=== PATIENT | female | born 1940 | race Caucasian/White ===

== ENCOUNTER 2019-03-13 17:36 | Inpatient (IN) ==
--- NOTE | 2019-03-13 18:41 | PROVIDER DOCUMENTATION ---
This chart was entered by Latanya King Scribe, acting as scribe for Alena Salvador MD. 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 denies: chest pain, cough, nausea, vomiting Similar Symptoms Previously?: Yes Recently seen or treated by another doctor?: Yes - Glascow Coma Score Best Eye Response (Tillar): (4) open spontaneously Best Verbal Response (Luzma): (5) oriented Best Motor Response (Luzma): (6) obeys commands Luzma Total: 15 <Alena Salvador - Last Filed: 03/13/19 21:00> <Mason Tenorio - Last Filed: 03/13/19 21:16> - General Chief Complaint: Fever Stated Complaint: trouble walking Time Seen by Provider: 03/13/19 18:13 Allergies/Adverse Reactions: Patient Allergies Allergy/AdvReac Type Severity Reaction Status Date / Time No Known Allergies Allergy Verified 03/08/19 11:44 Home Medications: Home Medication List Medication Instructions Recorded Confirmed Last Taken Type Levothyroxine [Synthroid] 75 microgm PO DAILY 02/14/13 03/13/19 02/14/19 06:00 History Losartan [Cozaar] 100 mg PO DAILY #0 tablet 03/21/13 03/13/19 02/14/19 06:00 Rx Aripiprazole [Abilify] 7.5 mg PO QHS #15 tab 07/20/17 03/13/19 02/14/19 21:00 Rx Mirtazapine [Remeron] 15 mg PO QHS #30 tab 07/20/17 03/13/19 02/14/19 21:00 Rx Hydrocodone/Acetaminophen [[place] 7.5 mg PO TID PRN 02/09/19 03/13/19 02/14/19 19:30 History 7.5-325 Tablet] Prednisone 10 mg PO DAILY 0703/13/19 02/14/19 06:30 History Sulfasalazine 2 tab PO BID 02/09/19 03/08/19 02/14/19 06:30 History Sitagliptin Phos/Metformin HCl 1 tab PO QAM 03/08/19 03/13/19 Unknown History [Janumet 50-500 mg Tablet] Topiramate [Topamax] 50 mg PO BID 03/08/19 03/08/19 Unknown History Duloxetine [Cymbalta] 60 mg PO DAILY 03/13/19 03/13/19 Unknown History Metoprolol [Lopressor] 1 tab PO BID 03/13/19 03/13/19 Unknown History Topiramate 1 tab PO BID 03/13/19 03/13/19 Unknown History - History of Present Illness-Fever Nature of Presenting Problem: pt is a 78 yr old female presenting via EMS with complaint of fever, weakness and difficulty ambulating onset this afternoon, daughter reports she was unable to get pt to answer phone, went to check on her and found her sitting on toilet unable to get up due to weakness in her legs. pt admits recent hx of bladder cancer, bladder stents are in place and due to be removed on 03/15. pt is followed by Dr Hernandez and Dr Leslie. pt reports hx of frequent UTIs. (Alena Salvador) Review of Systems - Adult - REVIEW OF SYSTEMS - ADULT Constitutional: reports: chills, fever, fatique Eyes: reports: no symptoms reported Ears, Nose, Mouth & Throat: denies: ear pain, sinus problem, throat pain Cardiovascular: denies: chest pain, syncope Respiratory: denies: cough, shortness of breath Gastrointestinal: denies: abdominal pain, diarrhea, nausea, vomiting Genitourinary: reports: frequent UTI's. denies: dysuria, frequency Musculoskeletal: denies: back pain, neck pain Integumentary: reports: no symptoms reported Neurological: denies: dizziness/vertigo, headache/migraines Psychiatric: reports: no symptoms reported Endocrine: reports: no symptoms reported Hematologic/Lymphatic: reports: no symptoms reported Allergic/Immunologic: reports: no symptoms reported All Other Systems: Reviewed and Negative <Alena Salvador - Last Filed: 03/13/19 21:00> Past History - Adult - PAST MEDICAL HISTORY-ADULT Review of Records: reports: Old Records Reviewed, Nursing Assessment Review, Medications Reviewed, Social history reviewed & non-contributory. Major Childhood Illnesses: reports: denies history Cardiovascular: reports: HTN Respiratory: reports: denies history Gastrointestinal: reports: denies history Obstetrical/Gynecological: reports: denies history Genitourinary: reports: denies history Musculoskeletal: reports: denies history Neurological: reports: TIA Psychiatric: reports: denies history Endocrine/Immune: reports: denies history Other Conditions: reports: denies history - IMMUNIZATION STATUS Childhood Immunizations: See Nurse Assessment Flu Vaccine: See Nurse Assessment - FAMILY HISTORY Family History: reviewed, not pertinent - SOCIAL HISTORY Smoking: denies Substance Use: denies Living Situation: family <Alena Salvador - Last Filed: 03/13/19 21:00> Physical Exam-General - PHYSICAL EXAM-ADULT Initial Vital Signs Reviewed: Yes - CONSTITUTIONAL General Appearance: alert, no apparent distress, other (flushed cheeks, tremor to mouth, bilateral hands) - EYES Eyes: PERRL/EOMI - HEAD, EARS, NOSE, MOUTH & THROAT HENMT: normocephalic/atraumatic, moist mucous membranes, normal ENT inspection - NECK Neck: non-tender, full range of motion, supple, normal inspection - RESPIRATORY Respiratory: chest non-tender, lungs clear, normal breath sounds - CARDIOVASCULAR Cardiovascular: normal peripheral pulses, regular rate, rhythm, no edema - GASTROINTESTINAL (ABDOMEN) Abdominal Exam: normal bowel sounds, non tender, soft - LYMPHATIC Lymphatic: no adenopathy - MUSCULOSKELETAL Back Exam: normal inspection, no CVA tenderness, no vertebral tenderness Extremity: normal range of motion, non-tender, pedal edema Peripheral Pulses: radial (R): 2+, radial (L): 2+, dorsalis-pedis (R): 2+, dorsalis-pedis (L): 2+ - SKIN Integumentary: normal turgor, warm/dry, other (flushed cheeks) - NEUROLOGIC Neurologic: other (tremor to hands and mouth, hx of parkinsons dz). negative: focal weakness, motor weakness - PSYCHIATRIC Psych/Mental Status: normal mood/affect <Alena Salvador - Last Filed: 03/13/19 21:00> Progress - PLAN OF CARE/RESULTS Result Diagrams: 03/13/19 18:15 03/13/19 18:15 - XRAY 1 XRAY Study: Chest Impression: Normal ( Signed EXAM: CHEST-1 VIEW HISTORY: sepsis TECHNIQUE: Chest single view COMPARISON: 06/02/2018 FINDINGS: Poor inspiratory effort. The heart is not enlarged. The vessels are not distended. There are no infiltrates. No effusion identified. Scattered granuloma. IMPRESSION: No pneumonia. Electronically signed by Osbaldo Smalls 03/13/2019 7:47 PM 03/13/191946 Interpreting Physician: Osbaldo Smalls MD Dictated Date/Time: 03/13/191946 cc: Alena Salvador MD; None,PCP) - CHANGE OF SHIFT REPORT (ED Provider) 1 Report Given and Care Transferred to:: Dr Tenorio Time of Transfer: 19:00 Items Pending: Labs (need to call hospitalist to admit patient) <Alena Salvador - Last Filed: 03/13/19 21:00> - PLAN OF CARE/RESULTS Result Diagrams: 03/13/19 18:15 03/13/19 18:15 - CONSULTS/PCP/HOSPITALIST Notification #1 *Consult/PCP/Hospitalist*: hospitalistDr. Hill Time Discussed: 21:10 Consult Disposition: Admit <Mason Tenorio - Last Filed: 03/13/19 21:16> - PLAN OF CARE/RESULTS Progress/Plan/Lab Results: Vital Signs - 8 hr 03/13/19 17:16 03/13/19 19:50 03/13/19 20:23 Temperature 102.4 F H 98.6 F 100.1 F H Pulse Rate 81 85 Respiratory Rate 18 22 Blood Pressure 180/88 158/86 O2 Sat by Pulse Oximetry 92 L 94 L Laboratory Results - last 24 hr 03/13/19 03/13/19 03/13/19 18:15 18:15 18:15 WBC 7.80 RBC 3.67 L Hgb 11.0 L Hct 35.9 L MCV 97.8 MCH 30.0 MCHC 30.6 L RDW Std Deviation 14.5 Plt Count 147 MPV 11.6 H Immature Gran % (Auto) 0.1 Neut % (Auto) 81.1 H Lymph % (Auto) 9.2 L Mclennan % (Auto) 8.5 Eos % (Auto) 0.8 Baso % (Auto) 0.3 Immature Gran # (Auto) 0.01 Neut # (Auto) 6.33 Lymph # (Auto) 0.72 L Mclennan # (Auto) 0.66 H Eos # (Auto) 0.06 Baso # (Auto) 0.02 PT 13.9 INR 1.02 PTT (Actin FS) 27.8 Sodium 138 Potassium 4.3 Chloride 101 Carbon Dioxide 27 Anion Gap 10 BUN 16 Creatinine 0.7 Estimated GFR/1.73 m2 > 60 BUN/Creatinine Ratio 23 Glucose 150 H Calculated Osmolality 280 Calcium 8.3 L Total Bilirubin 0.50 AST 17 ALT 10 Alkaline Phosphatase 106 H Creatine Kinase 117 Troponin T Total Protein 6.5 Albumin 4.0 Globulin 3.0 Albumin/Globulin Ratio 2.0 Plasma Lactate Urine Source Urine Color Urine Clarity Urine pH Ur Specific [place] Urine Protein Urine Ketones Urine Blood Urine Nitrite Urine Bilirubin Urine Urobilinogen Urine Microscopic RBC Urine WBC Urine Microscopic WBC Ur Epithelial Cells Urine Crystals Urine Bacteria Urine Casts Urine Yeast Urine Glucose 03/13/19 03/13/19 03/13/19 18:15 18:15 20:02 WBC RBC Hgb Hct MCV MCH MCHC RDW Std Deviation Plt Count MPV Immature Gran % (Auto) Neut % (Auto) Lymph % (Auto) Mclennan % (Auto) Eos % (Auto) Baso % (Auto) Immature Gran # (Auto) Neut # (Auto) Lymph # (Auto) Mclennan # (Auto) Eos # (Auto) Baso # (Auto) PT INR PTT (Actin FS) Sodium Potassium Chloride Carbon Dioxide Anion Gap BUN Creatinine Estimated GFR/1.73 m2 BUN/Creatinine Ratio Glucose Calculated Osmolality Calcium Total Bilirubin AST ALT Alkaline Phosphatase Creatine Kinase Troponin T < 0.010 Total Protein Albumin Globulin Albumin/Globulin Ratio Plasma Lactate 0.8 Urine Source CATH Urine Color YELLOW Urine Clarity VERY CLOUDY A Urine pH 8.0 Ur Specific [place] 1.010 Urine Protein 2+(100 mg/dL) A Urine Ketones TRACE Urine Blood 4+ Urine Nitrite NEGATIVE Urine Bilirubin NEGATIVE Urine Urobilinogen NORMAL Urine Microscopic RBC TNTC A Urine WBC 2+ A Urine Microscopic WBC TNTC A Ur Epithelial Cells <10 Urine Crystals NONE SEEN Urine Bacteria 1+ Urine Casts NONE SEEN Urine Yeast NONE SEEN Urine Glucose NEGATIVE Orders Category Date Time Status Cardiac Monitoring DIRECTED Care 03/13/19 19:06 Active Causey Cath Insertion ORDERED Care 03/13/19 19:57 Active IV Insertion ORDERED Care 03/13/19 19:06 Active Notify MD of + Sepsis Screen NOW Care 03/13/19 19:06 Active Notify Physician As Ordered Care 03/13/19 19:06 Active CHEST-1 VIEW [RAD] Stat Exams 03/13/19 19:06 Completed BLOOD CULTURE [BLDCUL] Stat Lab 03/13/19 19:08 Ordered CBC WITH DIFF [HEME] Stat Lab 03/13/19 18:15 Completed CK PROFILE [SP CHEM] Stat Lab 03/13/19 18:15 Completed COMPREHENSIVE METABOLIC PANEL [CHEM] Stat Lab 03/13/19 18:[address] Stat Lab 03/13/19 20:52 Received LACTATE, PLASMA [CHEM] Lab 03/13/19 18:15 Completed LACTATE, PLASMA [CHEM] Lab 03/13/19 22:15 Uncollected LACTATE, PLASMA [CHEM] Lab 03/14/19 01:15 Uncollected PROTIME WITH INR [COAG] Stat Lab 03/13/19 18:15 Completed PTT [COAG] Stat Lab 03/13/19 18:15 Completed TROPONIN T Stat Lab 03/13/19 18:[address] W/POSS RFLX CULT [URINALYSIS] Stat Lab 03/13/19 20:02 Completed URINE CULTURE [RM] Routine Lab 03/13/19 20:39 Ordered Acetaminophen [Tylenol] Med 03/13/19 19:46 Discontinued 650 mg PO NOW ONE Hydrocodone/APAP 7.5 mg/325 mg [[place]-7.5] Med 03/13/19 20:54 Discontinued 1 each PO NOW ONE Piperacillin/Tazobactam [Zosyn] 3.375 gm Med 03/13/19 19:56 Discontinued 0.9% Sodium Chloride Inj [Ns] 50 ml IV NOW Oxygen Device Stat Oth 03/13/19 19:06 Active Departure - Departure Date of Disposition Decision: 03/13/19 - Critical Care Note This patient required my direct & personal management of CC.: Yes <Alena Salvador - Last Filed: 03/13/19 21:00> - Departure Time of Disposition Decision: 21:16 Certified Medical Emergency: Emergent <Mason Tenorio - Last Filed: 03/13/19 21:16> - Departure DIAGNOSIS: Generalized weakness Fever Qualifiers: Fever type: unspecified Qualified Code(s): R50.9 - Fever, unspecified UTI (urinary tract infection) Qualifiers: Urinary tract infection type: acute cystitis Hematuria presence: with hematuria Qualified Code(s): N30.01 - Acute cystitis with hematuria Disposition: ADMITTED INPATIENT 09 Condition: Stable Referrals and Follow-Ups: None,PCP [Primary Care Provider] - Attestation - Physician/ DENIA Attestation Patient care was provided by Advanced Practice Provider:: No The physician spent face to face time with patient:: Yes Advanced Practice Provider documentation review:: Supervising physician onsite and consulted in the evaluation and care of this patient. The physician did have a face to face encounter with the patient. <Mason Tenorio - Last Filed: 03/13/19 21:16> This chart was documented by the indicated scribe, (Latanya King Scribe) and accurately reflects the services I performed and decisions made by me, Alena Salvador MD, as attested by the provider's signature.
[2019-03-13 19:22] LABS: BASO# 0.02 X1000 (0.0-0.2); BASO% 0.3 % (0.0-0.8); EOS# 0.06 X1000 (0.0-0.7); EOS% 0.8 % (0.0-10.0); HEMATOCRIT 35.9 % (37.0-47.0); IMM GRAN# 0.01 X1000 (0.0-0.04); IMM GRAN% 0.1 % (0.0-0.5); LYMPH# 0.72 X1000 (1.2-3.4); LYMPH% 9.2 % (20.5-51.1); MCHC 30.6 g/dL (33-37); MCV 97.8 FL (81-99); MONO# 0.66 X1000 (0.11-0.59); MONO% 8.5 % (1.7-9.3); MPV 11.6 FL (7.4-10.4); NEUT# 6.33 X1000 (1.4-6.5); NEUT% 81.1 % (42.2-75.2); PLT 147 X1000 (130-400); RBC 3.67 XMIL (4.2-5.4); RDW 14.5 % (11.5-14.5)
[2019-03-13 19:23] LABS: INR 1.02; PROTIME 13.9 Seconds (11.0-16.0)
[2019-03-13 19:24] LABS: PTT 27.8 Seconds (22.3-41.8)
[2019-03-13 19:30] LABS: AGAP 10; ALKALINE PHOSPHATASE 106 U/L (32-104); BUN 16 mg/dL (8-22); CALCIUM 8.3 mg/dL (8.8-10.2); CHLORIDE 101 mmol/L (98-107); CK PROFILE 117 U/L (24-173); COSMO 280; CREATININE 0.7 mg/dL (0.5-0.9); ESTIMATED GFR > 60; GLUCOSE 150 mg/dL (70-104); GOT 17 U/L (10-30); GPT 10 U/L (10-36); POTASSIUM 4.3 mmol/L (3.5-5.1); SODIUM 138 mmol/L (136-145); TCO2 27 mmol/L (25-35); TOTAL PROTEIN 6.5 g/dL (6.3-8.3)
[2019-03-13] MEDS ORDERED: TYLENOL PO ONE (19:46)
--- NOTE | 2019-03-13 19:49 | Diag Imaging Result Doc PS360 ---
EXAM: CHEST-1 VIEW HISTORY: sepsis TECHNIQUE: Chest single view COMPARISON: 06/02/2018 FINDINGS: Poor inspiratory effort. The heart is not enlarged. The vessels are not distended. There are no infiltrates. No effusion identified. Scattered granuloma. IMPRESSION: No pneumonia. Electronically signed by Osbaldo Smalls 03/13/2019 7:47 PM
[2019-03-13] MEDS ORDERED: ZOSYN 3.375 GM in NS 50 ML IV ONE (19:56)
[2019-03-13 20:26] LABS: BILIRUBIN URINE NEGATIVE (NEGATIVE); BLOOD URINE 4+ (NEGATIVE); CLARITY VERY CLOUDY (CLEAR); COLOR YELLOW; GLUCOSE URINE NEGATIVE (NEGATIVE); KETONE URINE TRACE mg/dL (NEGATIVE); LEUKOCYTES URINE 2+ (NEGATIVE); NITRITE URINE NEGATIVE (NEGATIVE); PROTEIN URINE 2+(100 mg/dL) mg/dL (NEGATIVE); UROBILINOGEN URINE NORMAL
[2019-03-13 20:38] LABS: URINE BACTERIA 1+ /HFP; URINE CAST NONE SEEN /LPF; URINE CRYSTAL NONE SEEN /HPF; URINE EPITHELIAL CELLS <10 /HPF (<10); URINE RBC TNTC /HPF (<10); URINE WBC TNTC /HPF (<10); URINE YEAST NONE SEEN /HPF
[2019-03-13 20:39] LABS: URINE SOURCE CATH
[2019-03-13] MEDS ORDERED: NORCO-7.5 PO ONE (20:54)
[2019-03-13] MEDS ORDERED: NS 1,000 ML IV ONE (21:16)
[2019-03-13 21:17] LABS: INFLUENZA A NEGATIVE (NEGATIVE); INFLUENZA B NEGATIVE (NEGATIVE)
[2019-03-13] MEDS ORDERED: TYLENOL PO PRN (21:24)
[2019-03-14] MEDS: ZOSYN 3.375 GM in NS 50 ML IV SCH ×2 (01:34→08:45)
[2019-03-14] MEDS ORDERED: MORPHINE IV PRN (10:23)
[2019-03-14] MEDS ORDERED: COZAAR PO SCH (12:29)
[2019-03-14] MEDS ORDERED: LOPRESSOR PO SCH (12:29)
[2019-03-14] MEDS ORDERED: ZOFRAN IV PRN ×2 (12:29→13:24)
[2019-03-14] MEDS ORDERED: CYMBALTA PO SCH (12:29)
[2019-03-14] MEDS ORDERED: VANCOMYCIN IV PER PHARMACY MISC SCH (12:29)
[2019-03-14] MEDS ORDERED: NS 1,000 ML IV SCH (12:29)
[2019-03-14] MEDS ORDERED: TYLENOL PO PRN (13:23)
--- NOTE | 2019-03-14 13:23 | HISTORY AND PHYSICAL ---
CHIEF COMPLAINT: Fever, lower extremity weakness. HISTORY OF PRESENT ILLNESS: This is a 78-year-old female, who presented to the emergency room complaining of fever, generalized weakness and difficulty ambulating. This started around the afternoon of the . The daughter stated that she was unable to get the patient to answer the phone. She went to check on her and found her sitting on the toilet, unable to stand up due to weakness in her legs, prompting her evaluation in the emergency room. Ms. Martin underwent TURBT approximately 3 cm in diameter with cold cup biopsies of the bladder with fulguration and placement of a right double-J stent on February [address] Leslie. 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 She is scheduled for surgery on the to have a cystoscope and the right ureteral stent removed. PAST MEDICAL HISTORY: Parkinson disease with bilateral arm tremors, hypertension, hyperlipidemia, hypothyroid, sleep apnea, chronic pain, non alcoholic fatty liver disease, diabetes mellitus. PAST SURGICAL HISTORY: Luis Alberto fundoplication in early 1899s. SOCIAL HISTORY: She denies alcohol, tobacco, or illicit drug use. ALLERGIES: No known drug allergies. HOME MEDICATIONS: A list will be obtained by the nursing staff and, once verified, will review and restart it as appropriate. REVIEW OF SYSTEMS: Discussed with the patient with pertinent positives stated in the HPI. She denied any syncope or dizziness, any chest pain or palpitations, shortness of breath, cough, any night sweats, any nausea, vomiting, diarrhea, any black or bloody vomitus or stools. PHYSICAL EXAMINATION: GENERAL: This is a 78-year-old female, who is lying in the bed in no distress. VITAL SIGNS: Blood pressure is 152/64 with a heart rate of 83, respirations 16, temperature is 98.5 degrees oral with room air saturations 97%. EYES: Pupils equal, round, react to light. EOM's are intact. Sclerae anicteric. HEENT: Head is normocephalic, atraumatic. Mucous membranes are moist. NECK: Supple with trachea midline. CARDIOVASCULAR: Regular rate and rhythm. S1 and S2 are appreciated. She has no lower extremity edema. Calves are nontender bilateral with peripheral pulses palpable x4 extremities. PULMONARY: Breath sounds are clear with no increased work of breathing noted. Chest rises and falls symmetrically with respiration. GASTROINTESTINAL: Abdomen is soft, nontender, nondistended with bowel sounds in all 4 quadrants. : Urine is cloudy yellow draining from Causey to bedside bag. NEUROLOGIC: She is alert and oriented. SKIN: Warm and dry. LABS: WBC is 7.8 with hemoglobin 11, hematocrit 35.9, and platelets 147. INR is 1.02. Sodium 138, potassium 4.3, BUN 16, creatinine 0.7 with a glucose of 150. Urinalysis reveals too numerous to count red blood cells, too numerous to count microscopic white blood cells and less than 10 epithelial cells. Influenza A and B are negative. X-RAYS: Chest x-ray reveals no pneumonia. ASSESSMENT AND PLAN: 1. Generalized weakness. 2. Fever. 3. 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 4. Hypertension. 5. Diabetes mellitus. 6. Hypothyroid. 7. Gastroesophageal reflux disease. 8. Obstructive sleep apnea. 9. Non alcoholic fatty liver disease. PLAN: The patient was admitted to the medical-surgical floor at [facility]. Blood cultures and urine cultures are pending. Antibiotic coverage of vancomycin dosed per pharmacy and Zosyn, and further antibiotics will be culture driven. Pattern blood glucose with sliding scale insulin. identify her home medications and continue as appropriate with a diabetic diet. scheduled for stent removal in the morning. Therefore,will transfer her to [facility], consult Dr. Leslie. n.p.o. after midnight. CBC and CMP in the morning. Continue with IV hydration. Consult [facility] for discharge planning. Plan was discussed with Dr. Hill. Further treatments pending hospital course. Dictated by NAGI Dunham for Servando Hill MD cc: NAGI Dunham MD [facility]
[2019-03-14] MEDS ORDERED: SITAGLIPTIN PHOS PO SCH (13:45)
[2019-03-14] MEDS ORDERED: METFORMIN HCL PO SCH (13:45)
[2019-03-14] MEDS ORDERED: JANUVIA PO SCH (14:00)
[2019-03-14] MEDS ORDERED: ZOSYN 3.375 GM in NS 50 ML IV SCH (14:00)
[2019-03-14] MEDS ORDERED: VANCOMYCIN 1,700 MG in NS 250 ML IV ONE (14:00)
[2019-03-14] MEDS: NS 1,000 ML IV SCH (14:55)
[2019-03-14] MEDS: CYMBALTA PO SCH (14:59)
[2019-03-14] MEDS: COZAAR PO SCH (14:59)
[2019-03-14] MEDS: LOPRESSOR PO SCH ×2 (14:59→23:38)
[2019-03-14] MEDS: TOPAMAX PO SCH ×2 (15:07→23:38)
[2019-03-14] MEDS: PREDNISONE PO SCH (15:07)
--- NOTE | 2019-03-14 16:01 | HISTORY AND PHYSICAL ---
ADDENDUM: Patient seen and examined by myself. Full note dictated and discussed with nurse practitioner. The patient has a history of fever. She does have a history of bladder cancer and bladder stent. She notes the stent is supposed to be taken out in a couple of days by Dr. Leslie. We are going to place her on antibiotics. We are going to transfer her to [facility] so Dr. Leslie can evaluate and treat accordingly. Please see full note. cc: Servando Hill MD
--- NOTE | 2019-03-14 19:46 | Diag Imaging Result Doc PS360 ---
EXAM: CT ABD/PELVIS W/IV CONT ONLY 03/14/2019 HISTORY: r/o intra-abdomenal vs retroperitoneal abscess TECHNIQUE: This exam was performed using automated exposure control, adjustment of mA or kV according to patient size, and/or use of iterative reconstruction technique. COMMENT: The current study is compared with the previous examination of 09/06/2018. There are granulomatous changes in the lung bases there has been gastric bypass. The aorta contains some atherosclerotic calcification but there is no evidence of aneurysm and the mesenteric and renal arteries are patent. The pancreas and adrenal glands are stable in appearance. There are multiple renal cysts bilaterally. There is a stent in the right ureter and renal pelvis. There is still some dilatation of the collecting system. There is no evidence of cholelithiasis. The liver is unremarkable in appearance. There is no evidence of bowel obstruction. There is stranding in the perinephric spaces particularly on the right side. Pelvis: There has been previous appendectomy. There is a Causey catheter in the bladder. The bladder wall is thickened and indistinct in margin consistent with inflammation. This is worse than on the previous study. There has been hysterectomy. There is no evidence of free fluid. There is some diverticulosis in the sigmoid colon without evidence of diverticulitis. There is some gas and stool in the rectosigmoid colon. The regional skeleton is stable in appearance. IMPRESSION: Constipation. No evidence of abscess. The possibility of cystitis cannot be excluded. Persistent right hydronephrosis despite the presence of the ureteral stent. Electronically signed by Tao Gasca 03/14/2019 7:44 PM
[2019-03-14] MEDS: HUMALOG SUBQ SCH (21:30)
[2019-03-14] MEDS: REMERON PO SCH (23:38)
[2019-03-14] MEDS: ABILIFY PO SCH (23:38)
[2019-03-15] MEDS: MAXIPIME 1 GM in NS 50 ML IV SCH ×5 (03:46→18:42)
[2019-03-15] MEDS: HUMALOG SUBQ SCH ×5 (06:00→22:04)
[2019-03-15] MEDS: SYNTHROID PO SCH (06:00)
[2019-03-15] MEDS: PRILOSEC PO SCH (06:00)
[2019-03-15 06:22] LABS: BASO# 0.01 X1000 (0.0-0.2); BASO% 0.1 % (0.0-0.8); EOS# 0.14 X1000 (0.0-0.7); EOS% 1.9 % (0.0-10.0); HEMATOCRIT 36.1 % (37.0-47.0); HEMOGLOBIN 11.4 g/dL (12.0-16.0); IMM GRAN# 0.02 X1000 (0.0-0.04); IMM GRAN% 0.3 % (0.0-0.5); LYMPH# 1.04 X1000 (1.2-3.4); LYMPH% 13.8 % (20.5-51.1); MCH 30.1 PG (27-31); MCHC 31.6 g/dL (33-37); MCV 95.3 FL (81-99); MONO# 0.96 X1000 (0.11-0.59); MONO% 12.7 % (1.7-9.3); NEUT# 5.36 X1000 (1.4-6.5); NEUT% 71.2 % (42.2-75.2); PLT 124 X1000 (130-400); RBC 3.79 XMIL (4.2-5.4); RDW 14.8 % (11.5-14.5); WBC 7.53 X1000 (4.8-10.8)
[2019-03-15 06:42] LABS: AGAP 9; ALB/GLOB RATIO 1.1; ALBUMIN 3.3 g/dL (3.5-5.0); ALKALINE PHOSPHATASE 84 U/L (32-104); BUN 12 mg/dL (8-22); CALCIUM 8.8 mg/dL (8.8-10.2); CHLORIDE 108 mmol/L (98-107); COSMO 281; CREATININE 0.5 mg/dL (0.5-0.9); ESTIMATED GFR > 60; GLUCOSE 130 mg/dL (70-104); GOT 18 U/L (10-30); GPT 10 U/L (10-36); POTASSIUM 3.7 mmol/L (3.5-5.1); SODIUM 140 mmol/L (136-145); TCO2 23 mmol/L (25-35); TOTAL BILIRUBIN 0.32 mg/dL (0.20-1.00); TOTAL PROTEIN 6.4 g/dL (6.3-8.3)
[2019-03-15] MEDS ORDERED: SYNTHROID PO SCH (07:00)
[2019-03-15] MEDS ORDERED: PRILOSEC PO SCH (07:00)
[2019-03-15] MEDS ORDERED: B & O 15A SUPP ONE (07:36)
[2019-03-15] MEDS: NS 1,000 ML IV SCH ×2 (07:39→18:39)
[2019-03-15] MEDS ORDERED: ULTRAM PO PRN (08:38)
[2019-03-15] MEDS: PREDNISONE PO SCH (10:32)
[2019-03-15] MEDS: COZAAR PO SCH (10:32)
[2019-03-15] MEDS: LOPRESSOR PO SCH ×2 (10:33→22:04)
[2019-03-15] MEDS: TOPAMAX PO SCH ×2 (10:33→22:04)
[2019-03-15] MEDS: CYMBALTA PO SCH (10:33)
--- NOTE | 2019-03-15 10:33 | OPERATIVE NOTE ---
PROCEDURE DATE: 03/15/2019 PREOPERATIVE DIAGNOSIS: History of urothelial carcinoma in situ with indwelling right double J stent. POSTOPERATIVE DIAGNOSIS: History of urothelial carcinoma in situ with indwelling right double-J stent. PROCEDURE PERFORMED: 1. Cystoscopic exam. 2. Cold cup bladder biopsies with fulguration. 3. Remove right double-J stent. SURGEON: Prema Loco ANESTHESIA: General via laryngeal mask. FINDINGS: Cystoscopic exam: Urethra-greater than 21 [place], without stricture. Bladder-normal. Ureteral orifices bilaterally with a double-J stent in place on the right. The previous resection sites were healing well. No papillary lesions seen. There was a red area on the left lower posterolateral wall. exam normal external female. Atrophic mucosa. No adnexal masses. Palpably normal bladder. INDICATION FOR PROCEDURE: This 78-year-old female has a history of urothelial carcinoma in situ. She is about 4 weeks status post cystoscopic exam with bilateral retrograde ureteral pyelograms and excisional biopsies of red areas of the bladder. Her bilateral retrograde ureteral pyelograms were normal. The excisional biopsies revealed urothelial carcinoma in situ and all sites resected. She presents for second-look biopsies and removal of the double-J stent that was placed at the time of previous surgery description. DESCRIPTION OF PROCEDURE: After informed consent was obtained the patient and her receiving IV antibiotics, she was taken the main OR cystoscopy room, placed in the supine position. General anesthesia via laryngeal mask was achieved. She was then placed in the low lithotomy position and prepped and draped in the usual sterile fashion for cystoscopic exam. A 21-Grenadian sheath cystoscope was passed through patient's urethra and bladder with findings noted above. The cold cup biopsy forceps were placed, and the red area on the left lower posterolateral wall was biopsied. There was also a biopsy taken from the posterior wall and the right upper posterolateral wall. The Bugbee electrode was placed and hemostasis was achieved. The grasping forceps were placed and the indwelling double-J stent was removed. At completion of the procedure, both ureteral orifices appeared normal. The right side was dilated consistent with the indwelling stent. There was no bleeding areas seen. The cystoscope was removed. An 18-Grenadian Causey catheter was passed through the patient's urethra and into the bladder. 10 mL sterile water placed in the Causey balloon. The Causey was placed to gravity drain. The efflux was clear. She tolerated the procedure well. Estimated blood loss was 1 mL. She was taken to recovery room in good condition. cc: Heron Leslie MD
[2019-03-15] MEDS: MORPHINE IV PRN ×2 (10:53→15:52)
[2019-03-15] MEDS ORDERED: VANCOMYCIN 1,200 MG in NS 250 ML IV SCH (14:00)
[2019-03-15] MEDS ORDERED: GLUCOPHAGE PO SCH (14:00)
--- NOTE | 2019-03-15 16:00 | PROGRESS NOTE ---
DATE: 03/15/2019 SUBJECTIVE: This morning Ms. Martin refers to be doing a whole lot better. The daughter in law was at the bedside at the time of the encounter. Ms. Martin has just come out of surgery. OBJECTIVE: Vital signs: Blood pressure 132/68, pulse of 67, respirations 20, and temperature 98 degrees. General: Ms. Martin is a 78-year-old female. She is in bed in no distress. HEENT: Mucosa is pink and moist. Anicteric. Acyanotic. Neck: Supple. Chest: Clear to auscultation. No crepitations. No rhonchi. Cardiovascular: Regular rate and rhythm. No murmurs, no rubs, no gallops. Abdomen: Soft. Nontender. Bowel sounds present. Extremities: No pedal edema. [employer] SAL[employer]: Patient is awake, alert, and oriented. There is no focal neurological deficit. LABORATORY DATA: CBC reveals a normocytic anemia with a hemoglobin of 11.4. Rest of cell count is normal. Chemistry is also reviewed, and completely normal. Glucose is 224. CURRENT MEDICATIONS: 1. Abilify 7.5 p.o. at bedtime. 2. Cefepime 1 g q.8 hours. 3. Cymbalta 60 mg p.o. daily. 4. Insulin sliding scale. 5. Levothyroxine 75 mcg p.o. daily. 6. Cozaar 100 mg p.o. daily. 7. Metoprolol 50 mg b.i.d. 8. Remeron 15 mg p.o. at bedtime. 9. Vancomycin per pharmacy protocol. 10. Prednisone 10 mg p.o. daily. 11. Tramadol 50 mg p.o. q.6h p.r.n. MICROBIOLOGY DATA: So far, microbiology data shows blood cultures 48 hours negative. Urine culture still growing gram-positive cocci. Review of the operative report shows procedure done was cystoscopy, cold cup bladder biopsy with fulguration, removal of the right double-J stent. A CT scan of the abdomen yesterday did show constipation. No evidence of abscess. There was a possibility of cystitis. There is a persistent right hydronephrosis despite the presence of ureteral stent. ASSESSMENT: 1. Sepsis on presentation secondary to complicated right side pyelonephritis. 2. Right sided pyelonephritis with hydronephrosis associated with J-stent in place. This has been removed today by Urology. Patient is currently showing a gram-positive cocci in the urine. She has been covered until we have the ID and sensitivity. 3. History of diabetes mellitus controlled. 4. Hypothyroidism. We will continue with levothyroxine. 5. Generalized weakness secondary to the ongoing infection. The patient feels a whole lot better. We will get physical therapy to start working with her. In general, Ms. Martin is feeling a whole lot better. She feels stronger. She is now afebrile. She just underwent a urological intervention where the right double-J stent has been removed. We are still pending the final ID and sensitivity on the urine culture, and modify the antibiotic accordingly. cc: Leroy Banuelos MD MTDD
[2019-03-15] MEDS: ABILIFY PO SCH (22:03)
[2019-03-15] MEDS: REMERON PO SCH (22:04)
[2019-03-16] MEDS: MAXIPIME 1 GM in NS 50 ML IV SCH (01:30)
[2019-03-16] MEDS: NS 1,000 ML IV SCH ×2 (05:16→21:15)
[2019-03-16] MEDS: PRILOSEC PO SCH (05:59)
[2019-03-16] MEDS: SYNTHROID PO SCH (06:00)
[2019-03-16] MEDS: HUMALOG SUBQ SCH ×4 (06:21→21:12)
[2019-03-16 06:58] LABS: BASO# 0.02 X1000 (0.0-0.2); BASO% 0.3 % (0.0-0.8); EOS# 0.22 X1000 (0.0-0.7); EOS% 3.5 % (0.0-10.0); HEMATOCRIT 31.3 % (37.0-47.0); HEMOGLOBIN 9.5 g/dL (12.0-16.0); IMM GRAN# 0.02 X1000 (0.0-0.04); IMM GRAN% 0.3 % (0.0-0.5); LYMPH# 1.58 X1000 (1.2-3.4); LYMPH% 25.4 % (20.5-51.1); MCH 29.5 PG (27-31); MCHC 30.4 g/dL (33-37); MCV 97.2 FL (81-99); MONO# 0.69 X1000 (0.11-0.59); MONO% 11.1 % (1.7-9.3); MPV 11.5 FL (7.4-10.4); NEUT% 59.4 % (42.2-75.2); PLT 129 X1000 (130-400); RBC 3.22 XMIL (4.2-5.4); RDW 14.8 % (11.5-14.5); WBC 6.23 X1000 (4.8-10.8)
[2019-03-16] MEDS: MORPHINE IV PRN ×2 (07:48→14:06)
[2019-03-16] MEDS: PREDNISONE PO SCH (09:42)
[2019-03-16] MEDS: COZAAR PO SCH (09:42)
[2019-03-16] MEDS: CYMBALTA PO SCH (09:42)
[2019-03-16] MEDS: LOPRESSOR PO SCH ×2 (09:42→21:12)
[2019-03-16] MEDS: TOPAMAX PO SCH ×2 (09:42→21:12)
--- NOTE | 2019-03-16 13:41 | PROGRESS NOTE ---
DATE: 03/16/2019 SUBJECTIVE: This morning Ms. Martin referred to be feeling generalized weak and not as great as yesterday. She thinks she is feeling warm. However, her temperatures are normal. OBJECTIVE: Vital signs: Blood pressure is 134/59, pulse is 57, respiration is 17, temperature 97.1 degrees. The patient is saturating 98% on room air. General: Ms. Katz is a 78-year-old female. She is in bed. No seemingly distress. HEENT: Mucosa is pink and moist. Anicteric. Acyanotic. Neck: Supple. Chest: Good air entry bilaterally. There was no crepitations no rhonchi. Cardiovascular: Regular rate and rhythm. Abdomen: Soft, distended, but nontender. Bowel sounds present. Extremities: No pedal edema. DROP WIRER: Patient is awake, alert, oriented. There is no focal neurologic deficit. LABORATORY DATA: Glucose is 97. Urine culture has come back positive for Enterococcus gallinarum which is sensitive to penicillin and also vancomycin sensitive. ASSESSMENT: 1. Sepsis on presentation secondary to complicated right side pyelonephritis. The patient is on antimicrobial. Urine culture has come back positive for enterococcus gallinarum which is vancomycin and penicillin sensitive. We have switched the current antimicrobial to oral amoxicillin. 2. Right side pyelonephritis with hydronephrosis associated with J-stent in place. J-stent has been removed yesterday. 3. History of diabetes mellitus controlled. 4. Hypothyroidism will continue with levothyroxine. 5. Generalized weakness and deconditioning. Patient has been evaluated by physical therapy yesterday. She was able to do about 50 feet with contact guard assist. Will be waiting for PT evaluation today as well. PLAN: So in general I think Ms. Martni is doing a lot better. She feels a little down this morning. We will be waiting for physical therapy to work with her. We are going to change the current antimicrobial to p.o. amoxicillin, observe her overnight. If she feels better tomorrow we will let her go home. cc: Leroy Banuelos MD
[2019-03-16] MEDS: AMOXIL PO SCH ×2 (14:09→21:11)
[2019-03-16] MEDS: ABILIFY PO SCH (21:11)
[2019-03-16] MEDS: REMERON PO SCH (21:12)
[2019-03-17] MEDS: MORPHINE IV PRN ×2 (01:51→07:30)
[2019-03-17] MEDS: AMOXIL PO SCH (05:12)
[2019-03-17] MEDS: PRILOSEC PO SCH (06:06)
[2019-03-17] MEDS: SYNTHROID PO SCH (06:07)
[2019-03-17] MEDS: HUMALOG SUBQ SCH ×2 (06:10→11:53)
[2019-03-17] MEDS: COZAAR PO SCH (08:35)
[2019-03-17] MEDS: LOPRESSOR PO SCH (08:35)
[2019-03-17] MEDS: TOPAMAX PO SCH (08:35)
[2019-03-17] MEDS: PREDNISONE PO SCH (08:35)
[2019-03-17] MEDS: CYMBALTA PO SCH (08:35)
[2019-03-17] MEDS: NS 1,000 ML IV SCH (11:53)
[2019-03-17 12:20] VITALS: BP 131/69
--- NOTE | 2019-03-17 15:14 | DISCHARGE SUMMARY ---
ADMISSION DATE: 03/13/2019 DISCHARGE DATE: 03/17/2019 DISPOSITION: Home. FOLLOW-UP: 1. Letty Jacinto. 2. Dr. Leslie. CONSULTATION DURING THIS ADMISSION: Urology was consulted patient was seen by Dr. Leslie. INVASIVE PROCEDURES DONE DURING THIS ADMISSION: Cystoscopy examination, cold cup bladder biopsy with fulguration, and removal of right double-J stent was done by Dr. Leslie on 03/15/2019. MICROBIOLOGY DATA OF SIGNIFICANCE: Urine culture was positive for enterococcus gallinarum. IMAGING STUDIES OF SIGNIFICANCE: A chest x-ray showed no pneumonia. A CT scan of the abdomen and pelvic did show constipation, possibility of cystitis, persistent right hydronephrosis despite the presence of ureteral stents. ADMISSION DIAGNOSIS: 1. Generalized weakness. 2. Fever. 3. History of bladder cancer. 4. Diabetes. 5. Obstructive sleep apnea. DIAGNOSIS AT THE TIME OF DISCHARGE: 1. Sepsis on presentation secondary to complicated right side pyelonephritis. 2. Right side pyelonephritis with hydronephrosis associated with J-stent in place. Culture positive for enterococcus gallinarum. The patient is status post cystoscopy with J-stent removal. 3. Diabetes mellitus, controlled. 4. Hypothyroidism. 5. Generalized weakness and deconditioning. Physical therapy was consulted. 6. Normocytic anemia. 7. History of urothelial bladder carcinoma in situ. DISCHARGE MEDICATIONS: 1. Levothyroxine 75 mcg p.o. daily. 2. Losartan 100 mg p.o. daily. 3. Abilify 7.5 p.o. at bedtime. 4. Mirtazapine 50 mg p.o. at bedtime. 5. [place] 7.5 p.o. 3 times per day. 6. Prednisone 10 mg p.o. daily. 7. Janumet 50/500 one in the morning. 8. Cymbalta 60 mg p.o. daily. 9. Metoprolol 50 mg b.i.d. 10. Topiramate 100 mg b.i.d. 11. Amoxicillin 500 p.o. q. 8 h. PRESENTING COMPLAINT: Fever, lower extremity weakness. HISTORY OF PRESENTING COMPLAINT: Ms. 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 The patient was supposed to have the double-J stent removed in about a week's time. However, at home she was having some fever, generalized weakness, and urine discomfort, went to [place] where she was evaluated, and was transferred to [facility] for higher level of care. HOSPITAL COURSE: Ms. Martin was admitted to the medical floor. Was started on broad-spectrum IV antimicrobial. Cultures were done. A CT scan of the abdomen and pelvic was also done because of sepsis picture. The result revealed persistent right hydronephrosis in spite of the stent in place and also suggestion of a right side pyelonephritis. She did improve remarkably throughout the hospital course. She became afebrile. Blood cultures came back came back 48 hours negative. The urine culture was positive for Enterococcus gallinarum which was pansensitive, so she was transitioned to p.o. amoxicillin. She was observed 24 hours after the transition. She tolerated the medication well and she continues to be afebrile. This morning she feels better. She was evaluated by physical therapy as well. Yesterday, she was able to do 120 feet with contact guard assistance. We think she is fairly stable for discharge this morning. She is going to follow up with Dr. Leslie and with her primary care doctor. At the time of discharge, her blood pressure is 131/69, pulse of 58, respiration is 20, temperature 97.9 degrees. Patient is saturating 95% on room air. She is clinically stable. She is currently asymptomatic. She is going to be discharged on the medication mentioned above. All the discharge instructions have been discussed with her and she voiced understanding. There was not any other family member at the bedside at the time of the encounter. Time spent for discharge is 37 minutes. cc: MD Letty Caruso MD Dr. Hughes
== END 2019-03-17 13:58 | disposition home health service (06) | DRG 668 ==
LOC: P.MEDSURG 17:36 → P.ED 17:36 → OBSVTOIN 22:01 → SUATTDRO 22:01 → 3N 03-14 12:42
PROVIDERS: ATTEND Internal Medicine